=== PATIENT | female | born 1945 | race African-American/Black ===

== ENCOUNTER → 2016-07-22 | Outpatient (CLI) | payer OTHER ==
[2014-11-08 15:14] VITALS: BP 205/102
[~2016-07-22] MED LIST: ALPR0.257; ASPI325T4; COLC0.6T34; CRESTOR10 MG PO; CRESTOR20 MG PO; CYCL10TA2; ESOM40CA; FLUO40CA2; FLUT1DIS3 IH; FURO-69 PO; GABA-586 PO; GLYB2.5T2 PO; LORA0.5T; LOSA25TA4 PO; METO25TA4 PO; OXYC5CAP3 PO; POTA20TA12 PO; PRED-220 PO; PROAIR HFA8.5 GM IH; RIVA15TA PO; SITA25TA PO; SITA50TA PO
--- NOTE | 2016-07-22 11:39 | RAD ---
Indication shortness of breath. History of sarcoid PA and lateral views of the chest were obtained and are compared to a plain film examination 03/07/2015 Postoperative changes are noted. Perihilar infiltrates and/or scars are noted appearing similar. An acute finding is not seen. Heart and pulmonary vessels are similar. Significant pleural fluid is not seen. There is no pneumothorax. Overall a significant change in the appearance of the chest compared to the previous plain film is not seen. IMPRESSION: Chronic changes. No acute finding. No significant change
== END | disposition home or self-care (01) ==
LOC: RAD 10:38
PROVIDERS: ATTEND Internal Medicine Pulmonary Disease
DX: R06.02 Shortness of breath (principal)
CPT/HCPCS: 71020

== ENCOUNTER → 2016-09-30 | Outpatient (CLI) | payer OTHER ==
[2014-11-08 15:14] VITALS: BP 205/102
[~2016-09-30] MED LIST changes: -ASPI325T4; +ASPI325T8; +OXYC5CAP PO; -OXYC5CAP3 PO
--- NOTE | 2016-09-30 11:56 | KCIC ---
Bone Densitometry History: Postmenopausal, osteopenia, diabetes, screening. Comparison: Bone density November 14, 2013. Findings: Bone Densitometry was performed with dual photon absorption of the lumbar spine and left proximal femur. Lumbar Spine: Bone density is 0.927 g/cm2 for L1-L4. T-score is -1.1. Z-score is 0.4. No significant change from prior study. Left total femur: Bone density is 0.721 g/cm2. T-score is -1.8. Z-score is -0.8. There has been a 5.5 percent decrease in the bone mineral density of the left femur since the prior study. IMPRESSION: Osteopenia of the lumbar spine and left femur. World Health Organization definition of osteoporosis and osteopenia for women: normal equals T score at or above -1.0 standard deviations; osteopenia equals T score between -1.0 and -2.5 standard deviations; osteoporosis equals T score at or below -2.5 standard deviations. Electronically signed by: Khoa Apple MD (09/30/2016 11:52 AM)
--- NOTE | 2016-09-30 14:50 | KCIC ---
Bilateral digital screening mammograms: Reason for examination: Routine screening. Comparison is made to previous studies dated 12/03/2014 and August 14, 2013. The skin and nipples show no abnormalities. No abnormal lymph nodes are seen. The breast parenchyma is predominantly fatty. (Breast density: Category A.) There are no dominant masses, suspicious calcifications or architectural distortions. Impression: No evidence of malignancy. Recommend routine screening. BI-RADS Category 1: Negative. "Our facility is accredited by the [employer] Mammography Program." This patient's information has been entered into a reminder system for the patient to be notified with the results of her examination and a target date for the next mammogram. Electronically signed by: Shiloh Dennis MD (09/30/2016 2:47 PM)
== END | disposition home or self-care (01) ==
LOC: KCIC MAMMO 10:26
PROVIDERS: ATTEND Internal Medicine
DX: Z12.31 Encounter for screening mammogram for malignant neoplasm of breast (principal); Z13.820 Encounter for screening for osteoporosis; Z78.0 Asymptomatic menopausal state; M85.88 Other specified disorders of bone density and structure, other site
CPT/HCPCS: 77080; G0202; 77067